=== PATIENT | male | born 1940 | race Caucasian/White ===

== ENCOUNTER → 2020-07-21 11:52 | Outpatient (CLI) | payer MEDICARE, SELFPAY ==
--- NOTE | 2020-07-21 11:59 | EKG12_ITS ---
Test Reason : PREOP Blood Pressure : / mmHG Vent. Rate : 053 BPM Atrial Rate : 053 BPM P-R Int : 164 ms QRS Dur : 092 ms QT Int : 434 ms P-R-T Axes : 035 010 060 degrees QTc Int : 407 ms Sinus bradycardia Otherwise normal ECG Confirmed by JENNIFER BECKER, TRACI ([id number]), editor & co founder BRITNI VELARDE ([id number]) on 07/22/2020 11:54:07 AM Referred By: Gustavo Echavarria Confirmed By:TRACI RODRIGUEZ MD
[2020-07-21 13:42] LABS: Hematocrit 44.4 % (40-54); Hemoglobin 14.1 g/dL (13.0-16.5); Mean Corp Hgb Conc 31.8 g/dL (32-36); Mean Corpuscular Volume 94.5 fL (80-94); Mean Platelet Vol. 10.7 fl (6.2-12.0); Platelet Count 198 K/mm3 (150-450); RBC Distribution Width CV 12.9 % (11.6-14.6); White Blood Count 7.1 K/mm3 (4.4-11.0)
[2020-07-21 14:10] LABS: Anion Gap 3 (5-15); BUN 14 mg/dL (7-18); BUN/Creat Ratio 14.3 RATIO (10-20); Calcium,Total 8.8 mg/dL (8.5-10.1); Chloride 104 mmol/L (98-107); Creatinine, Serum 0.98 mg/dL (0.70-1.30); EST Glomerular Filtration Rate 78 mL/min (>60); Est Glom Filt Rate - Afr Amer 95 mL/min (>60); Glucose 159 mg/dL (74-106); Sodium Level 137 mmol/L (136-145)
== END ==
PROVIDERS: PCP Nurse Practitioner Adult Health; Referring Provider Otolaryngology; Visit Provider Otolaryngology
DX: Z03.818 Encounter for observation for suspected exposure to other biological agents ruled out (principal); Z11.59 Encounter for screening for other viral diseases
CPT/HCPCS: 36415; 80048; 85027; 87426; 93005; C9803